=== PATIENT | female | born 1960 | race Caucasian/White ===

== ENCOUNTER → 2020-07-11 | Outpatient (CLI) | payer OTHER ==
[~2020-07-11] MED LIST: AMOXICILLIN500 MG PO; BACTRIM DS TAB1 EACH PO; MELOXICAM15 MG PO; METOPROLOL SUCC25 MG PO; PRILOSEC OTC20 MG PO; TOPROL XL 25 MG25 MG PO; TOPROL XL50 MG PO
[2020-07-12 08:14] LABS: RHEUMATOID ARTHRITIS FACTOR <10.0 IU/mL (0.0-13.9)
[2020-07-12 12:14] LABS: ANGIOTENSIN-CONVERTING ENZYME 71 U/L (14-82)
[2020-07-12 22:11] LABS: CCP ANTIBODIES IGG/IGA 4 units (0-19)
== END ==
LOC: LAB 11:53
PROVIDERS: Internal Medicine
DX: M19.049 Primary osteoarthritis, unspecified hand (principal); M25.50 Pain in unspecified joint
CPT/HCPCS: 36415; 82164; 83520; 85652; 86140; 86200; 86431

== ENCOUNTER → 2020-08-07 | Outpatient (CLI) | payer OTHER ==
[2020-08-08 09:14] LABS: CORTISOL 1.1 ug/dL (.)
== END ==
LOC: LAB 08:56
PROVIDERS: Internal Medicine
DX: C7A.090 Malignant carcinoid tumor of the bronchus and lung (principal); R91.1 Solitary pulmonary nodule; R91.8 Other nonspecific abnormal finding of lung field
CPT/HCPCS: 36415; 82533; 83497; 84260; 84702; 86316

== ENCOUNTER → 2021-01-22 | Outpatient (CLI) | payer OTHER | LOC: US 12:35 | DX: C7A.090 Malignant carcinoid tumor of the bronchus and lung (principal); R59.0 Localized enlarged lymph nodes; R91.8 Other nonspecific abnormal finding of lung field | CPT/HCPCS: 76882 ==

== ENCOUNTER → 2021-08-06 | Outpatient (CLI) | payer OTHER | LOC: CT 05-14 13:30 | DX: C7A.090 Malignant carcinoid tumor of the bronchus and lung (principal); R91.1 Solitary pulmonary nodule; R91.8 Other nonspecific abnormal finding of lung field | CPT/HCPCS: 71260; Q9967 ==